=== PATIENT | female | born 1930 | race Caucasian/White ===

== ENCOUNTER 2019-09-03 05:29 | Day surgery (SDC) | payer MEDICARE, BC ==
[~2019-09-03] VITALS: Ht 162.6 cm; Wt 59.0 kg
[2019-09-03] VITALS (8 sets, daily range): BP systolic 114–142; BP diastolic 66–80
[~2019-09-03 05:29] MED LIST: GABA250S2 PEG; LACT-100 PEG; LEVO50TA PEG; SUMA100T16 PEG; VERA80TA7 PEG; ringers solution, lacted 1,000 ML IV SCH
[2019-09-03] MEDS ORDERED: famotidine 20mg tablet PO ONE (05:30)
[2019-09-03] MEDS ORDERED: cefazolin/dext.iso 2gm/100ml 100 ML IV ONE (05:30)
[2019-09-03] MEDS ORDERED: LIDOcaine 1% (10mg/ml) 2ml vial ONE (05:55)
[2019-09-03 06:39] LABS: BASOPHILS # (AUTO) 0.1 X10'3 (0-0.2); BASOPHILS % (AUTO) 0.7 % (0-1); EOSINOPHILS # (AUTO) 0.1 X10'3 (0-0.9); LYMPHOCYTES # (AUTO) 1.6 X10'3 (1.1-4.8); LYMPHOCYTES % (AUTO) 19.6 % (21-51); MEAN CORPUSCULAR HEMOGLOBIN 29.6 PG (27.0-31.0); MEAN CORPUSCULAR HGB CONC 33.5 g/dL (33.0-36.5); MEAN CORPUSCULAR VOLUME 88.4 FL (78-98); MEAN PLATELET VOLUME 9.3 FL (7.4-10.4); MONOCYTES # (AUTO) 0.8 X10'3 (0-0.9); MONOCYTES % (AUTO) 10.1 % (2-12); NEUTROPHILS # (AUTO) 5.5 X10'3 (1.8-7.7); NEUTROPHILS % (AUTO) 68.6 % (42-75); PRE OP HEMATOCRIT 42.7 % (35.0-45.0); PRE OP HEMOGLOBIN 14.3 g/dL (12.0-16.0); PRE OP PLATELET COUNT 200 X10'3 (140-440); RED BLOOD COUNT 4.83 X10'6 (4.20-5.60); RED CELL DISTRIBUTION WIDTH 14.2 % (11.5-14.5)
[2019-09-03 06:52] LABS: PRE OP PROTIME 9.9 SECONDS (9.0-12.0)
[2019-09-03] MEDS ORDERED: LIDOcaine 1% 30ml preserv. free vial ONE (06:53)
[2019-09-03 06:58] LABS: ALBUMIN 3.7 G/DL (3.4-5.0); ALKALINE PHOSPHATASE 96 IU/L (46-116); BLOOD UREA NITROGEN 23 MG/DL (7-18); CALCIUM 9.7 MG/DL (8.5-10.1); CHLORIDE 104 MMOL/L (99-107); PRE OP ALT 31 U/L (30-65); PRE OP ANION GAP 9 (8-16); PRE OP AST 28 U/L (10-37); PRE OP BILIRUB, TOTAL 0.4 MG/DL (0.0-1.0); PRE OP GLUCOSE 103 MG/DL (70-104); PRE OP POTASSIUM 3.4 MMOL/L (3.4-5.1); PRE OP SODIUM 141 MMOL/L (135-145); TOTAL CARBON DIOXIDE 27.9 MMOL/L (24-32); TOTAL PROTEIN 7.4 G/DL (6.4-8.2); eGFR 52 ML/MIN
[2019-09-03] MEDS ORDERED: fentaNYL/PF 50MCG/1 ML 2ML syringe ONE (07:51)
[2019-09-03] MEDS ORDERED: MIDAZolam 5mg/5ml vial ONE (07:51)
[2019-09-03] MEDS ORDERED: ringers solution, lacted 1,000 ML IV SCH (07:54)
[2019-09-03] MEDS ORDERED: enalaprilat dihydrate 2.5mg/2ml vial IV PRN (07:55)
[2019-09-03] MEDS ORDERED: ondansetron/PF 4mg/2ml inj IV PRN (07:55)
[2019-09-03] MEDS ORDERED: morphine 4 MG/ML inj SYRINge IV PRN (07:55)
[2019-09-03] MEDS ORDERED: hydrALAZINE 20mg/ml inj. IV PRN (07:55)
[2019-09-03] MEDS ORDERED: fentaNYL/PF 50MCG/1 ML 2ML syringe IV PRN ×2 (07:55)
[2019-09-03] MEDS ORDERED: morphine 2 MG/ML inj. syringe IV PRN (07:55)
--- NOTE | 2019-09-03 08:55 | NUR ---
1 liter bag placed on left chest wall surgical site per md dr roberts
--- NOTE | 2019-09-03 08:55 | NUR ---
Received from OR via BED, accompanied by Anesthesiologist DR MENDEZ --- and report given by Anesthesiolgist. PATIENT A&OX4, DENIES PAIN, V/S WNL, NEUROVASCULAR CHECKS INTACT, 20G PIV RUE, SCD ON, DRESSING TO LEFT CHEST CDI
--- NOTE | 2019-09-03 09:55 | NUR ---
PATIENT A&OX4 DENIES PAIN, V/S WNL W/ PACED HR AT 70 DR MELTON HAS REVIEWED EKG, SCD OFF, PIV D/C, DRESSING TO LEFT CHEST CDI. I HAVE REVIEWED D/C INSTRUCTIONS WITH PATIENT AND SHE HAS VERBALIZED UNDERSTANDING. PATIENT D/C HOME WITH FRIENDS WHO GAVE TRANSPORT AND AL HER BELONGINGS SENT WITH HER.
== END 2019-09-03 09:55 | disposition home or self-care (01) ==
LOC: PAS 05:29
PROVIDERS: ATTEND Surgery
DX: Z45.010 Encounter for checking and testing of cardiac pacemaker pulse generator [battery] (principal); I49.5 Sick sinus syndrome; I25.10 Atherosclerotic heart disease of native coronary artery without angina pectoris; I10 Essential (primary) hypertension; Z98.890 Other specified postprocedural states; Z98.49 Cataract extraction status, unspecified eye; Z98.1 Arthrodesis status; Z88.8 Allergy status to other drugs, medicaments and biological substances; Z88.1 Allergy status to other antibiotic agents; Z79.899 Other long term (current) drug therapy; Z79.01 Long term (current) use of anticoagulants
CPT/HCPCS: 33228; 36415; 71046; 80053; 82948; 85025; 85610; 85730; 93005; C1785; J2001; J2250; J3010; J7120; A4215; A4618; A6258; A7000